=== PATIENT | male | born 1995 | race African-American/Black ===

== ENCOUNTER 2018-02-13 14:07 | Emergency (ER) | payer SELFPAY ==
[~2018-02-13] VITALS: Ht 142.2 cm; Wt 41.0 kg
[~2018-02-13 14:07] MED LIST: CYCL-36 PO; IBUP-232 PO
[2018-02-13 14:13] VITALS: BP 119/57; PULSE 101; RESP 16; TEMP 98.3; O2SAT 98
[2018-02-13] MEDS ORDERED: IBUPROFEN 600 MG TAB PO ONE (14:45)
--- NOTE | 2018-02-13 14:51 | PD ---
HPI Chief Complaint: Hip Injury Time Seen by Provider: 14:28 Travel History International Travel<30 days: No Contact w/Intl Traveler<30days: No Traveled to known affect area: No History of Present Illness HPI 22-year-old male presents to the emergency department with complaint of right hip pain 1 year. Denies injury. Says it is been getting worse since August. Denies fever, vomiting. Denies paresthesias, loss of sensation to the affected extremity. Reports decreased strength when he tries to lift his right leg. Is able to ambulate on the extremity without complication. Rates pain 10/ 10. Worse with ambulation. Better at rest. Has taken ibuprofen with no relief of symptoms. Has not followed up with anybody in regards to this complaint in the past year. No primary care provider. Denies significant past medical history. Allergies to grass and dust. Has no other medical complaints. No other modifying factors or associated signs and symptoms. PFSH Past Medical History Diminished Hearing: No Immunizations Current: Yes Social History Alcohol Use: No Tobacco Use: Yes Substance Use: No Allergies-Medications (Allergen,Severity, Reaction): Coded Allergies: No Known Allergies (Verified Adverse Reaction, Unknown, 02/13/18) Reported Meds & Prescriptions Reported Meds & Active Scripts Active Ibuprofen 600 Mg Tab 600 Mg PO Q6H PRN Review of Systems Except as stated in HPI: all other systems reviewed are Neg Physical Exam Narrative GENERAL: Well-nourished, well-developed black male patient, in no acute distress ; afebrile, nontoxic-appearing SKIN: Warm and dry. HEAD: Atraumatic. Normocephalic. EYES: Pupils equal and round. No scleral icterus. No injection or drainage. ENT: Mucosa pink and moist. Airway patent. NECK: Trachea midline. CARDIOVASCULAR: Regular rate RESPIRATORY: No accessory muscle use. GASTROINTESTINAL: Flat. MUSCULOSKELETAL: Right hip with full range of motion; without erythema, edema, or ecchymosis; with tenderness on abduction; no tenderness elicited on palpation to the lateral aspect of the right hip; no obvious deformity; no leg length discrepancy; patient unable to perform active straight leg raise of his right leg. Right lower extremity is supple and non-tense with 2+ pedal pulse and sensory intact and without erythema or edema. Ambulatory at the bedside with a limp to the right lower extremity. NEUROLOGICAL: Awake and alert. Oriented 3. No obvious cranial nerve deficits. Motor grossly within normal limits. Normal speech. PSYCHIATRIC: Appropriate mood and affect; insight and judgment normal. Data Data Last Documented VS Vital Signs Date Time Temp Pulse Resp B/P (MAP) Pulse Ox O2 Delivery O2 Flow Rate FiO2 02/13/18 14:13 98.3 101 16 119/57 (77) 98 Orders Orders Hip, Uni(4+Vws) W Ap Pelvis (02/13/18 ) Ibuprofen (Motrin) (02/13/18 14:45) Ed Discharge Order (02/13/18 17:25) Mandatory Outpatient Referral (02/13/18 17:25) Crutches (02/13/18 17:28) [facility] Medical Decision Making Medical Screen Exam Complete: Yes Emergency Medical Condition: Yes Medical Record Reviewed: Yes Differential Diagnosis Arthritis, bursitis, nonspecific hip pain Narrative Course 22-year-old male with right hip pain 1 year. I will x-ray the hip and pelvis to rule out any acute findings. I discussed my plan of care with Dr. Bradshaw and she agrees with my plan of care and patient disposition. 1720: Right hip with pelvis x-ray concluded: Hip and Pelvis X-Ray 02/13/18 0000 Signed Impressions: CONCLUSION: Severe arthritic changes, right worse than left Reviewed x-ray findings with Dr. Hernandez and continued plan of care and disposition discussed. Patient provided a copy of the x-ray report and findings discussed with the patient. Crutches ordered for support. Mandatory outpatient referral ordered for patient to follow-up with orthopedics. Ibuprofen prescribed for home. patient to follow-up with orthopedic surgeon within 1 week. Instructed patient to follow up with primary care provider. Patient verbalizes understanding and agreement with treatment plan. Patient is medically cleared and stable for discharge. Discussed reasons to return to the emergency department. Patient agrees with treatment plan. The patients vital signs are stable and the patient is stable for outpatient follow- up and treatment. Patient discharged home, stable and in no acute distress. Diagnosis Primary Impression: Arthritis of right hip Referrals: [facility] Orthopaedic Surgeon Primary Care Physician Patient Instructions: Arthritis (ED), General Instructions, Hip Pain (ED) Additional Instructions: Tylenol or ibuprofen as directed and as needed to reduce pain and inflammation Avoid aggravating activity Increase activity as tolerated Cane and/or crutches as needed for support Follow-up with orthopedic surgeon within 1 week Follow-up with primary care provider Return to the emergency department immediately with worsening symptoms Med/Other Pt SpecificInfo: Prescription(s) given Scripts Ibuprofen (Ibuprofen) 600 Mg Tab 600 MG PO Q6H Y for PAIN, #20 TAB 0 Refills Prov: Brittaney Finley 02/13/18 Disposition: 01 DISCHARGE HOME Condition: Stable Brittaney Finley Feb 13, 2018 14:51
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
[2018-02-13] MEDS ORDERED: IBUP-232 PO (17:25)
== END 2018-02-13 17:42 | disposition home or self-care (01) ==
LOC: NEPK 14:07
DX: M16.11 Unilateral primary osteoarthritis, right hip (principal); Z72.0 Tobacco use
CPT/HCPCS: 73503; 99283; E0113